=== PATIENT | male | born 1980 | race Caucasian/White ===

== ENCOUNTER 2024-08-24 15:28 | Emergency (ER) | payer SELFPAY ==
[2024-08-24] VITALS (16 sets, daily range): BP systolic 122–166; BP diastolic 88–115; PULSE 52–75; RESP 13–26; TEMP 36.6–36.9; O2SAT 94–100; BMI 34.2
--- NOTE | 2024-08-24 15:28 | ECG_ITS ---
APPROVED REPORT Exam: Resting ECG HR:56 bpm ECG Measurements Heart Rate 56 AXES DC 159 P 44 QRSd 129 QRS 75 QT 439 T 35 QTc 431 Conclusion SINUS BRADYCARDIA POSSIBLE RIGHT VENTRICULAR CONDUCTION DELAY [RSR (QR) IN V1/V2] Electronically signed by : MICKI ALTMAN, 08/24/2024 23:13:36
--- NOTE | 2024-08-24 15:32 | XR_ITS ---
FINAL REPORT TECHNIQUE: Chest PA & Lateral CLINICAL HISTORY: chest pain COMPARISON: None FINDINGS: 2 views of the chest were performed. The heart size is normal. The mediastinum is within normal limits. There is no acute cardiopulmonary process. There are no pleural effusions. There is no pneumothorax. The bony thorax appears intact. IMPRESSION: No acute cardiopulmonary process. Reviewed, Interpreted and Dictated by Nam Arriola MD Transcribed by Isaura Márquez Authenticated and [facility]
[2024-08-24 15:38] LABS: Basophils # 0.1 K/mm3 (0-0.2); Basophils % 0.8 % (0.1-2.0); Eosinophils # 0.2 K/mm3 (0.0-0.4); Hematocrit 46.2 % (42.0-52.0); Hemoglobin 15.5 g/dL (14.1-18.0); Lymphocytes # 2.1 K/mm3 (0.7-4.5); Lymphocytes % 26.8 % (10-50); Mean Corpuscular HGB Conc 33.5 g/dL (31.8-35.4); Mean Corpuscular Hemoglobin 28.4 pg (27.0-31.2); Mean Corpuscular Volume 84.6 fl (80-94); Mean Platelet Volume 10.4 fl (7.4-10.4); Monocytes # 0.7 K/mm3 (0.1-1.0); Monocytes % 9.4 % (1.7-9.3); Neutrophils # 4.8 K/mm3 (1.8-7.8); Neutrophils % 60.6 % (37.0-80.0); Platelet Count 244 K/mm3 (142-424); Red Blood Count 5.46 M/mm3 (4.60-6.20); Red Cell Distribution Width 12.4 % (11.5-17.5); White Blood Count 7.9 K/mm3 (4.8-10.8)
--- NOTE | 2024-08-24 15:38 | ECG_ITS ---
APPROVED REPORT Exam: Resting ECG HR:65 bpm ECG Measurements Heart Rate 65 AXES HI 154 P 48 QRSd 134 QRS 86 QT 431 T 34 QTc 443 Conclusion SINUS RHYTHM INTRAVENTRICULAR CONDUCTION DELAY [130+ ms QRS DURATION] Electronically signed by : MICKI ALTMAN, 08/24/2024 23:13:26
--- NOTE | 2024-08-24 15:38 | HMH.EDGENADL ---
Discharge Plan Disposition Patient Disposition: Home, Self-Care Condition: Good Prescriptions Prescriptions: New meclizine 25 mg tablet 25 mg PO QID PRN (Reason: dizziness) Qty: 20 0RF hydrochlorothiazide 12.5 mg tablet 12.5 mg PO DAILY Qty: 30 1RF Referrals Follow up/Referrals: Provider,MD Vandana [Primary Care Provider] - See instructions Jerry Santacruz MD [Staff Physician] - See instructions Activity Restrictions/Add. Instructions Additional Instructions/Restrictions: You were evaluated in the emergency department today. Please follow-up closely with cardiology as well as with a primary care provider. 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 Meclizine is for you to have as needed for dizziness and vertigo, hydrochlorothiazide is a blood pressure medication for you to take daily. Return to the emergency department for new or worsening symptoms. Clinical Impressions Clinical Impression: Chest pain, Dizziness, High blood pressure, Vertigo Instructions Patient Instructions: DI for Vertigo, DI for Atypical Chest Pain, DI for Dizziness-Nonvertigo Print Language Print Language: Hungarian Discharge ED Provider: Mary Lehman General Adult HPI General Chief complaint: Dizziness Stated complaint: Chest Pain Time Seen by Provider: 08/24/24 15:32 History of Present Illness HPI narrative: This patient is a 43-year-old [facility] male presenting to the emergency department for evaluation of concern for chest pain and dizziness. Patient states that he has had these intermittent episodes for quite some time. The last time it was really bad, he went to someone who specializes in natural supplements. He is not sure what he started taking, but it did help. He denies use of supplements at this time. He states that he had been without episodes for a long time, until the last 2 weeks when he started having episodes again. Today, symptoms are much worse, prompting [facility] sent him over for evaluation. He states that the dizziness is worse with certain position changes. When he gets very dizzy, he has episodes of nausea and vomiting. His chest pain is left-sided and radiates all the way across his chest to the other side. No current neurologic symptoms such as visual disturbance, numbness, tingling, unilateral weakness, discoordination, or other concerns. He reports history of high blood pressure but is not on medications for this. He reports family history of cardiac issues. Related Data Previous Rx's ?Medication ?Instructions ?Recorded hydrochlorothiazide 12.5 mg tablet 12.5 mg PO DAILY #30 tabs 08/24/24 meclizine 25 mg tablet 25 mg PO QID PRN dizziness #20 tabs 08/24/24 Allergies Allergy/AdvReac Type Severity Reaction Status Date / Time No Known Allergies Allergy Verified 08/24/24 15:54 [facility] Disclaimer: The information contained in this section may have been updated after the patient was seen, as this information can be updated by other users. Social History Smoking Status: Never smoker alcohol intake: never current occupational status: employed Travel in the last 8 weeks: None ROS Obtained: Yes All systems reviewed & no additional complaints except as documented Physical Exam General General appearance: alert and in no apparent distress Head Head exam: atraumatic and normocephalic Eye Eye exam: Present PERRL, EOMI and nystagmus (Unidirectional horizontal beating nystagmus that is fatigable) ENT ENT exam: Present normal exam, normal oropharynx, mucous membranes moist and normal external ear exam Neck Neck exam: Present normal inspection, full ROM and trachea midline; Absent tenderness Chest Chest inspection: Present normal inspection and symmetric chest wall rise; Absent tenderness Respiratory Respiratory exam: Present normal lung sounds bilaterally; Absent respiratory distress, wheezes, stridor or accessory muscle use Cardiovascular Cardiovascular exam: Present regular rate and normal rhythm Abdominal Exam Abdominal exam: Present soft; Absent distention, tenderness, guarding or rebound Extremities Exam Extremities exam: Present normal inspection, full ROM and normal capillary refill; Absent tenderness or edema Back Exam Back exam: Present normal inspection and full ROM; Absent tenderness Neurological Exam Neurological exam: Present alert, oriented X3, CN II-XII intact and normal gait; Absent motor sensory deficit Psychiatric Psychiatric exam: Present normal affect and normal mood Skin Skin exam: Present warm and dry Medical Decision Making Medical Records Medical records reviewed: Yes I reviewed the patient's medical records. Screening: Per USPSTF and CDC recommendations, given the prevalence of disease in our region, it is our hospital?s policy to screen for HIV and viral Hepatitis for all patients aged 18 and over and those with ongoing risk factors. [place] Inquiry Pt receiving controlled substance: No Vital Signs: 08/24/24 15:48 08/24/24 16:02 08/24/24 16:05 Temperature 98.5 F Temperature Source Oral Pulse Rate 61 Pulse Rate [Left Radial] 65 Pulse Rate [Orthostatic Lying Right Radial] 59 L Pulse Rate [Orthostatic Sitting Right Radial] 70 Pulse Rate [Orthostatic Standing Right Radial] 68 Respiratory Rate 20 18 Blood Pressure 145/90 H Blood Pressure [Orthostatic Lying Right Arm] 145/90 H Blood Pressure [Orthostatic Sitting Right Arm] 166/110 H Blood Pressure [Orthostatic Standing Right Arm] 159/115 H Blood Pressure [Right Arm] 160/93 H Blood Pressure Mean 110 Blood Pressure Mean [Right Arm] 115 Blood Pressure Source Blood Pressure Position 02 Sat by Pulse Oximetry 100 99 Oxygen Delivery Method Room Air 08/24/24 16:30 08/24/24 17:00 08/24/24 17:30 Temperature Temperature Source Pulse Rate 53 L 58 L Pulse Rate [Left Radial] Pulse Rate [Orthostatic Lying Right Radial] Pulse Rate [Orthostatic Sitting Right Radial] Pulse Rate [Orthostatic Standing Right Radial] Respiratory Rate 26 H 17 18 Blood Pressure 152/92 H 145/105 H 138/101 H Blood Pressure [Orthostatic Lying Right Arm] Blood Pressure [Orthostatic Sitting Right Arm] Blood Pressure [Orthostatic Standing Right Arm] Blood Pressure [Right Arm] Blood Pressure Mean 112 117 112 Blood Pressure Mean [Right Arm] Blood Pressure Source Blood Pressure Position 02 Sat by Pulse Oximetry 96 97 Oxygen Delivery Method 08/24/24 18:00 08/24/24 19:00 08/24/24 19:30 Temperature Temperature Source Pulse Rate 57 L 63 63 Pulse Rate [Left Radial] Pulse Rate [Orthostatic Lying Right Radial] Pulse Rate [Orthostatic Sitting Right Radial] Pulse Rate [Orthostatic Standing Right Radial] Respiratory Rate 25 H 20 16 Blood Pressure 150/101 H 150/99 H 146/101 H Blood Pressure [Orthostatic Lying Right Arm] Blood Pressure [Orthostatic Sitting Right Arm] Blood Pressure [Orthostatic Standing Right Arm] Blood Pressure [Right Arm] Blood Pressure Mean 114 Blood Pressure Mean [Right Arm] Blood Pressure Source Blood Pressure Position 02 Sat by Pulse Oximetry 98 98 97 Oxygen Delivery Method 08/24/24 20:00 08/24/24 20:30 08/24/24 21:00 Temperature Temperature Source Pulse Rate 58 L 66 66 Pulse Rate [Left Radial] Pulse Rate [Orthostatic Lying Right Radial] Pulse Rate [Orthostatic Sitting Right Radial] Pulse Rate [Orthostatic Standing Right Radial] Respiratory Rate 18 18 18 Blood Pressure 159/105 H 143/91 H 134/89 Blood Pressure [Orthostatic Lying Right Arm] Blood Pressure [Orthostatic Sitting Right Arm] Blood Pressure [Orthostatic Standing Right Arm] Blood Pressure [Right Arm] Blood Pressure Mean Blood Pressure Mean [Right Arm] Blood Pressure Source Blood Pressure Position 02 Sat by Pulse Oximetry 98 97 95 Oxygen Delivery Method 08/24/24 21:30 08/24/24 21:57 08/24/24 22:00 Temperature Temperature Source Pulse Rate 75 52 L Pulse Rate [Left Radial] Pulse Rate [Orthostatic Lying Right Radial] Pulse Rate [Orthostatic Sitting Right Radial] Pulse Rate [Orthostatic Standing Right Radial] Respiratory Rate 15 13 19 Blood Pressure 141/97 H 126/90 122/88 Blood Pressure [Orthostatic Lying Right Arm] Blood Pressure [Orthostatic Sitting Right Arm] Blood Pressure [Orthostatic Standing Right Arm] Blood Pressure [Right Arm] Blood Pressure Mean Blood Pressure Mean [Right Arm] Blood Pressure Source Blood Pressure Position 02 Sat by Pulse Oximetry 94 L 96 Oxygen Delivery Method 08/24/24 22:27 Temperature 97.9 F Temperature Source Oral Pulse Rate 60 Pulse Rate [Left Radial] Pulse Rate [Orthostatic Lying Right Radial] Pulse Rate [Orthostatic Sitting Right Radial] Pulse Rate [Orthostatic Standing Right Radial] Respiratory Rate 16 Blood Pressure 122/88 Blood Pressure [Orthostatic Lying Right Arm] Blood Pressure [Orthostatic Sitting Right Arm] Blood Pressure [Orthostatic Standing Right Arm] Blood Pressure [Right Arm] Blood Pressure Mean Blood Pressure Mean [Right Arm] Blood Pressure Source Automatic Cuff Blood Pressure Position Supine 02 Sat by Pulse Oximetry Oxygen Delivery Method Room Air Lab Data Lab results reviewed: Yes I reviewed the patient's lab results. Lab Results 08/24/24 15:31: WBC 7.9, RBC 5.46, Hgb 15.5, Hct 46.2, MCV 84.6, MCH 28.4, MCHC 33.5, RDW 12.4, Plt Count 244, MPV 10.4, Neut % (Auto) 60.6, Lymph % (Auto) 26.8, Fergus % (Auto) 9.4 H, Eos % (Auto) 2.0, Baso % (Auto) 0.8, Neut # (Auto) 4.8, Lymph # (Auto) 2.1, Fergus # (Auto) 0.7, Eos # (Auto) 0.2, Baso # (Auto) 0.1, D-Dimer 0.31, Sodium 137, Potassium 3.8, Chloride 102, Carbon Dioxide 30, Anion Gap 8.8, BUN 14, Creatinine 0.90, Estimated GFR 93, Est GFR ( Amer) 112, Glucose 106 H, Calcium 10.1, Total Bilirubin 0.7, AST 33, ALT 26, Alkaline Phosphatase 112, Troponin I < 0.01, NT-Pro-B Natriuret Pep 31.8, Total Protein 7.6, Albumin 4.7, Globulin 2.9, Albumin/Globulin Ratio 1.6, Lipase 44, TSH 3.22, Thyroxine (T4) 7.3 08/24/24 18:01: Troponin I < 0.01 08/24/24 : Lactate 0.9 08/24/24 15:31 08/24/24 15:31 Orders (Tests/Meds): ED MEDICATIONS Discontinued Medications Generic Name Dose Route Start Last Admin Trade Name Rudy PRN Reason Stop Dose Admin Acetaminophen 1,000 mg 08/24/24 18:55 08/24/24 19:11 Acetaminophen 500mg Tab PO 08/24/24 18:56 1,000 mg ONCE ONE Administration Aspirin 324 mg 08/24/24 15:33 08/24/24 15:57 Aspirin 81mg Chewable Tablet PO 08/24/24 15:34 324 mg ONCE ONE Administration Belladonna Alkaloids 60 ml 08/24/24 18:55 08/24/24 19:12 Belladonna Alkaloids 60 Ml Ml PO 08/24/24 18:56 60 ml ONCE ONE Administration Iopamidol 85 ml 08/24/24 21:09 Iopamidol-370 (76%);100ml Bottle IV 08/24/24 21:10 ONCE ONE Ketorolac Tromethamine 15 mg 08/24/24 18:55 08/24/24 19:12 Ketorolac 30mg/Ml Vial IV 08/24/24 18:56 15 mg ONCE ONE Administration Meclizine HCl 25 mg 08/24/24 15:33 08/24/24 15:57 Meclizine 25mg Tablet PO 08/24/24 15:34 25 mg ONCE ONE Administration Metoprolol Tartrate 50 mg 08/24/24 20:25 08/24/24 21:25 Metoprolol Tartrate 50mg Tablet PO 08/24/24 20:26 50 mg ONCE ONE Administration Metoprolol Tartrate 5 mg 08/24/24 20:30 08/24/24 21:30 Metoprolol Tartrate 5mg/5ml Vial IV 08/24/24 20:31 5 mg ONCE ONE Administration Nitroglycerin 0.4 mg 08/24/24 21:21 08/24/24 22:04 Nitroglycerin 0.4mg Sl Tablet SL 08/24/24 21:22 0.4 mg ONCE ONE Administration Sodium Chloride 50 ml 08/24/24 21:09 0.9 % Sodium Chloride 50 Ml Vial IV 08/24/24 21:10 ONCE ONE Sodium Chloride 10 ml 08/24/24 21:09 Sodium Chloride 0.9% 10ml Syr (Rad Only) IV 08/24/24 21:10 ONCE ONE ORDERS Category Date Time Status Coronary CTA [CT angio coronary artery] Stat Cat Scan 08/24/24 19:53 Taken CXR 2 view (NOT portable) [XR chest 2V] Stat Exams 08/24/24 15:32 Completed BNP [NT Pro Brain Natriuretic Pep.] Stat Lab 08/24/24 15:31 Completed Complete Blood Count Auto Diff Stat Lab 08/24/24 15:31 Completed Comprehensive Metabolic Panel Stat Lab 08/24/24 15:31 Completed D-Dimer Stat Lab 08/24/24 15:31 Completed Lactic Acid Stat Lab 08/24/24 Completed Lipase Stat Lab 08/24/24 15:31 Completed T4 (Thyroxine) Stat Lab 08/24/24 15:31 Completed TSH [Thyroid Stimulating Hormone] Stat Lab 08/24/24 15:31 Completed Trop I [Troponin I] Stat Lab 08/24/24 15:31 Completed Troponin I Q3H Lab 08/24/24 18:01 Completed ECG Data Tracing #1: I reviewed this ECG and interpreted as documented below: Sinus bradycardia with a ventricular to 56 bpm. Some motion artifact as patient is tremulous. No ST changes concerning for STEMI. Mild intraventricular conduction delay but other intervals are normal ECG initial impression date: 08/24/24 ECG initial impression time: 15:29 Tracing #2: I reviewed this ECG and interpreted as documented below: Sinus rhythm with ventricular rate of 65 bpm. Intraventricular conduction delay. No acute ST changes concerning for STEMI. Q wave present in lead II and aVF. Normal RI and QTc interval. ECG initial impression date: 08/24/24 ECG initial impression time: 15:39 HEART Score History (anamnesis): Moderately suspicious ECG: Normal Age: <45 years Risk factors: 1-2 risk factors Troponin: </= normal limit HEART Score: 2 Medical Decision Narrative: In summary, this patient is a 43-year-old male presenting to the Emergency Department for evaluation of intermittent episodes of dizziness, lightheadedness, chest pain, nausea, and vomiting. Differential diagnoses considered include but are not limited to peripheral vertigo, BPPV, M?ni?re's disease, central vertigo, ACS, dysrhythmia, PE. Ruling out the most morbid conditions drove assessment. It should be noted patient's history includes obesity and high blood pressure which may or may not be at goal therapy. This complicates all aspects of care by increasing patient's risk for morbidity. On exam, the patient is lying in bed, anxious appearing. He is not in any acute distress. He is neurologically intact without focal neurologic deficit. He has unidirectional horizontal beating nystagmus which is reassuring for peripheral cause of vertigo. Cardiopulmonary exam is reassuring, abdominal exam is benign. He has normal vital signs on cardiac telemetry. EKG obtained demonstrates mild intraventricular conduction delay but no acute STEMI. Workup included CBC, CMP, lipase, troponin, D-dimer, BNP, TSH, T4, chest x-ray, EKG. He was given oral aspirin as well as meclizine for symptomatic improvement. I independently interpreted chest x-ray prior to the radiologist read and noted no large focal consolidation concerning for pneumonia, no pneumothorax. Please see their read for final interpretation. Labs were obtained that demonstrated reassuring CBC with no significant leukocytosis, reassuring chemistry with negative troponin, negative D-dimer, normal liver and kidney function. Second troponin was obtained and was also negative. On reassessment, patient had some improvement in dizziness after administration of meclizine, but he still is having chest pain. He was given GI cocktail, IV Toradol, oral Tylenol with good improvement of his chest pain. Given his continued chest pain, I called and had an interactive discussion with Dr. Neil with cardiology. He recommended obtaining coronary CTA, which was obtained here in the emergency department. I then had interactive discussion with him regarding results and he notes his calcium score was 0. Given this, he recommends discharge with hydrochlorothiazide for high blood pressure. Patient was prescribed this. I also prescribed meclizine to treat vertigo. Patient was given instructions for close outpatient follow-up and strict return precautions. He was discharged after all questions were answered. Critical Care Critical Care Time Critical Care Time: No
[2024-08-24 15:45] LABS: Albumin Level 4.7 g/dl (3.5-5.0); Chloride 102 mmol/L (98-107); Potassium 3.8 mmoL/L (3.5-5.1); Sodium 137 mmol/L (136-145)
[2024-08-24 15:47] LABS: Alanine Aminotransferase 26 U/L (12-78); Aspartate Amino Transferase 33 U/L (17-59); Blood Urea Nitrogen 14 mg/dl (9-20); Estimated Glomerular Filt Rate 93 ml/min (>60); GFR (African American) 112 ML/MIN (>60)
[2024-08-24 15:48] LABS: Albumin/Globulin Ratio 1.6 (1.1-1.8); Alkaline Phosphatase 112 U/L (38-126); Anion Gap 8.8 mEq/L (5-15); Bilirubin,Total 0.7 mg/dl (0.2-1.3); Calcium 10.1 mg/dl (8.4-10.2); Carbon Dioxide 30 mmol/L (22.0-30.0); Globulin 2.9 g/dL (1.3-3.2); Glucose 106 mg/dl (74-100); Lipase 44 U/L (23-300); Total Protein,Serum 7.6 g/dl (6.3-8.2)
[2024-08-24 15:54] LABS: D-Dimer 0.31 ug/mL (0.0-0.5)
[2024-08-24 15:55] LABS: Lactic Acid 0.9 mmol/L (0.7-2.1)
[2024-08-24] MEDS: MECLIZINE 25MG TABLET 25 MG PO (15:57)
[2024-08-24] MEDS: ASPIRIN 81MG CHEWABLE TABLET 324 MG PO (15:57)
[2024-08-24 16:00] LABS: Troponin I < 0.01 ng/ml (0.00-0.034)
[2024-08-24 16:13] LABS: NT Pro Brain Natriuretic Pep. 31.8 pg/mL (0-125)
[2024-08-24 16:27] LABS: T4 (Thyroxine) 7.3 ug/dl (5.53-11.0)
[2024-08-24 16:40] LABS: Thyroid Stimulating Hormone 3.22 uIU/mL (0.465-4.68)
[2024-08-24 18:49] LABS: Troponin I < 0.01 ng/ml (0.00-0.034)
[2024-08-24] MEDS: ACETAMINOPHEN 500MG TAB 1000 MG PO (19:11)
[2024-08-24] MEDS: KETOROLAC 30MG/ML VIAL 15 MG IV (19:12)
[2024-08-24] MEDS: BELLADONNA ALKALOIDS 60 ML ML PO (19:12)
--- NOTE | 2024-08-24 19:53 | CT_ITS ---
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 A noncontrast coronary calcium scan was performed. A CT attenuation threshold of 130 Hounsfield units (HU) was used for the detection of calcium in contiguous voxels of 1 sq mm in area to be counted as individual lesions. Bolus tracking in the ascending aorta with a threshold of 180 HU was performed. Immediately afterwards, ECG synchronized cardiac CT was then performed from the cardiac base to apex using retrospective gating with ECG tube current modulation. A total of 85 mL of Isovue 370 mg/mL contrast medium was administered at 5 mL/sec followed by a saline flush using a biphasic injection protocol. A tube voltage of 120 KVp was used. The patient received the following medications prior to the cardiac CT. 50 mg of oral metoprolol 1.25 mg of intravenous metoprolol 0.8 mg of sublingual nitroglycerin The average heart rate at the time of acquisition was 71 bpm and regular. Image Reconstruction Transaxial images were reconstructed at 0.67 mm slide thickness. Data was reviewed interactively on an advanced workstation capable of 2 and 3-dimensional displays in all conventional reconstruction formats, including multiplanar reformations, maximum intensity projections, curved multiplanar reformations, and volume rendered reconstructions. When applicable, selected routine images describing the relevant coronary anatomy and pathology were saved and sent to PACS. Complications None Technical Quality Overall image quality was suboptimal due to significant motion and blurring artifact. Coronary artery opacification was fair. Total DLP (Dose-Length Product) is 1987.9 mGy-cm. The reported value represents the total of one or more individual components during the CT acquisition of this date and at this time, and as such, the same value may appear in more than one CT report depending on the interpreting/reporting physicians. COMPARISON None FINDINGS CT Coronary Calcium Scoring LMA (Left Main Artery) = 0 LAD (Left Anterior Descending) = 0 LCX (Left Coronary Circumflex) = 0 RCA (Right Coronary Artery) = 0 Total Calcium Score = 0 using the AJ-130 method. The interpretation of the calcium heart score is based on the following continuum*: 0 = no calcified plaque detected (risk of coronary artery disease is very low ??? less than 5%) 1-10 = calcium detected in extremely minimal levels (risk of coronary diseases is still low ??? less than 10%) 11-100 = mild levels of plaque detected with certainty (mild or minimal narrowing of heart arteries is likely) 101-400 = definite,at least moderate levels of plaque detected (relatively high risk of a heart attack within 3-5 years) >401-999 = extensive levels of plaque detected (high risk of heart attack, high levels of vascular disease are present, high likelihood of at least one significant coronary narrowing) *The calcium heart score quantifies the burden of coronary calcification/plaque in the coronary arteries. The calcium heart score is not able to evaluate the presence or burden of non-calcified (i.e. soft) plaque. There is no identifiable calcification in the aortic valve, mitral annulus or mitral valve, pericardium, or myocardium. Coronary CT Angiography The coronary arterial system is right dominant. Quantitative Stenosis Grading: Left Main (LM): The left main originates normally from the left sinus of Valsalva. The LM bifurcates into the left anterior descending artery and left circumflex artery. The LM is patent with no evidence of atherosclerosis. Left Anterior Descending (LAD) and Diagonal Branches: The LAD gives off 2 diagonal branch(es). The LAD and its branches are patent with no evidence of atherosclerosis. There is no evidence of LAD-myocardial bridge. Left Circumflex (LCX) and Obtuse Marginals (OM): The LCX gives off 1 Obtuse Marginal (OM) branch(es). The LCX and its branches are patent with no evidence of atherosclerosis. Right Coronary Artery (RCA): The RCA originates normally from the right sinus of Valsalva. The RCA gives off a posterior descending artery (PDA) and posterolateral (PL) branches. The RCA and its branches are patent with no evidence of atherosclerosis. Non-Coronary Cardiac Findings: Analysis of the left ventricular (LV) structure and function was performed after 3-D reconstruction of the LV from axial images, with user-corrected automatic contouring for assessment of LV volumes and user-defined reconstruction from oblique planes for measurement of 3-D cardiac structure and function. -The left ventricle systolic function is normal. -There is no left atrial appendage filling defect. Two right pulmonary veins and two left pulmonary veins drain normally into the left atrium. -No pericardial thickening or calcification. -Central and branch pulmonary arteries in the [id number] are unremarkable. -Thoracic aorta within the visualized thoracic aortic-branches in the [id number] is unremarkable. Extracardiac Structures No significant extra-cardiac findings. Note, however, that this study is focused on the cardiac findings. IMPRESSION -Technically difficult study due to significant motion and blurring artifact. Image quality is suboptimal, this may affect the diagnostic interpretation of the study findings. -Absence of coronary calcification with an Agatston score = 0 using the AJ-130 method. -No obvious evidence of significant flow-limiting atherosclerosis of the coronary arteries. -CAD-RADS 0. Management recommendations per ACC/AHA guidelines*, as clinically appropriate. *Recommendations: CAD RADS 0: Reassurance. Consider non-atherosclerotic causes of chest pain. CAD RADS 1: Consider non-atherosclerotic causes of chest pain. Consider preventive therapy and risk factor modification. CAD RADS 2: Consider non-atherosclerotic causes of chest pain. Consider preventive therapy and risk factor modification, particularly for patients with nonobstructive plaque in multiple segments. CAD RADS 3: Consider further functional testing. Consider symptom-guided anti-ischemic and preventive pharmacotherapy as well as risk factor modification per published guideline statements. CAD RADS 4A: Consider further functional testing or invasive coronary angiography with revascularization per published guideline statements. Consider symptom-guided anti-ischemic and preventive pharmacotherapy as well as risk factor modification per published guideline statements. CAD RADS 4B: Invasive coronary angiography recommended with revascularization per published guideline statements. Consider symptom-guided anti-ischemic and preventive pharmacotherapy as well as risk factor modification per published guideline statements. CAD RADS 5: Consider invasive angiography and/or viability assessment with revascularization per published guideline statements. Consider symptom-guided anti-ischemic and preventive pharmacotherapy as well as risk factor modification per published guideline statements. CRITICAL RESULT None COMMUNICATION Per this written report The coronary and cardiac findings of this CCTA were reviewed, reported, and signed by Jerry Santacruz MD (Directional Survey Drafter) Conclusion Electronically signed by : Ashly Santacruz MD 08/25/2024 12:37:03
[2024-08-24] MEDS: METOPROLOL TARTRATE 50MG TABLET 50 MG PO (21:25)
[2024-08-24] MEDS: METOPROLOL TARTRATE 5MG/5ML VIAL 5 MG IV (21:30)
[2024-08-24] MEDS: NITROGLYCERIN 0.4MG SL TABLET 0.4 MG SL (22:04)
--- NOTE | 2024-08-24 22:07 | PC.NURSE ---
Coronary CT done with monitor IV and RN Vitals 2139 140/99 p-70, 2142 BP 140/86 p-59, 2145 143/86 P-66 2148 132/89 p-60 2155 124/85 p-57 Pt tolerated procedure well
--- NOTE | 2024-08-24 22:22 | PC.NURSE ---
Nannette called for patient
--- NOTE | 2024-08-24 22:33 | PC.NURSE ---
Patients IV removed; Catheter tip intact; bleeding controlled; patient waiting on ride
== END 2024-08-24 22:39 | disposition home or self-care (01) ==
PROVIDERS: Emergency Provider Emergency Medicine
DX: R07.9 Chest pain, unspecified (principal); R42 Dizziness and giddiness; R11.2 Nausea with vomiting, unspecified; I10 Essential (primary) hypertension
CPT/HCPCS: 71046; 75574; 80053; 83605; 83690; 83880; 84436; 84443; 84484; 85025; 85378; 93005; 96374; 96375; 99284; J1885